=== PATIENT | female | born 1990 ===

== ENCOUNTER 2023-11-27 00:04 | Inpatient (IN) | payer SELFPAY ==
[2023-11-27] MEDS ORDERED: Nalbuphine 10 MG/0.5 ML Syringe IVPUSH PRN (00:19)
[2023-11-27] MEDS ORDERED: Sodium Chloride 0.9% 10 ML Syringe FLUSH PRN (00:19)
[2023-11-27] MEDS ORDERED: Misoprostol 200 MCG Tab PO PRN (00:19)
[2023-11-27] MEDS ORDERED: Water For Irrigation,Sterile 1,000 ML Container IRR PRN (00:19)
[2023-11-27] MEDS ORDERED: Sodium Chloride 0.9% 2.5 ML Syringe FLUSH PRN (00:19)
[2023-11-27] MEDS ORDERED: Lidocaine 1% 50 ML MDV INJECT PRN (00:19)
[2023-11-27] MEDS ORDERED: Carboprost Tromethamine 250 MCG/1 mL Vial IM PRN (00:19)
[2023-11-27] MEDS ORDERED: Methylergonovine 0.2 MG/1 ML Amp IM PRN (00:19)
[2023-11-27] MEDS ORDERED: Sodium Chloride 0.9% 20 ML SDV IV PRN (00:19)
[2023-11-27] MEDS ORDERED: Tranexamic Acid IN NACL,ISO-OS 1,000 MG in Premix Bag 1 BAG IV PRN (00:19)
[2023-11-27] MEDS ORDERED: Terbutaline 1 MG/ML SDV SUBCUT PRN (00:22)
[2023-11-27] MEDS ORDERED: Oxytocin/0.9 % Sodium Chloride 30 UNIT/500 ML BAG IV SCH (00:30)
[2023-11-27 00:39] LABS: HEMATOCRIT 35.9 % (37.0-47.0); HEMOGLOBIN 12.4 g/dL (12.0-16.0); MEAN CORPUSCULAR HEMOGLOBIN 30.8 pg (28.0-32.0); MEAN CORPUSCULAR HGB CONC 34.5 g/dL (32.0-36.0); MEAN CORPUSCULAR VOLUME 89.3 fL (83.0-99.0); MEAN PLATELET VOLUME 9.6 fL (9.4-12.3); PLATELET COUNT,PLT 299 K/uL (150-400); RED BLOOD CELL COUNT 4.02 M/uL (4.10-5.30); WHITE BLOOD CELL COUNT,WBC 9.68 K/uL (3.9-11.3)
[2023-11-27] MEDS: Lactated Ringers 1,000 ML IV SCH (00:41)
[2023-11-27] MEDS: Ampicillin 2 GM in Sodium Chloride 0.9% 100 ML IV ONE (00:45)
[2023-11-27] MEDS: Misoprostol 25 MCG (1/4 of 100 MCG) Tab VAG PRN (00:51)
[2023-11-27] MEDS: Ampicillin 1 GM in Sodium Chloride 0.9% 50 ML IV SCH (04:46)
[2023-11-27] MEDS: Oxytocin/0.9 % Sodium Chloride 30 UNIT/500 ML BAG IV SCH (09:23)
[2023-11-27] MEDS ORDERED: Phenylephrine HCl 0.5 MG/5 ML AMP ONE (13:51)
[2023-11-27] MEDS ORDERED: Bupivacaine 0.5% 10 ML SDV ONE (13:51)
[2023-11-27] MEDS: Ropivacaine HCl/PF 200 ML ONE (14:05)
[2023-11-27] MEDS ORDERED: ePHEDrine 50 MG/ML SDV IVPUSH PRN ×2 (14:12)
[2023-11-27] MEDS ORDERED: Ropivacaine HCl/PF 400 MG in Premix Bag 1 BAG EPIDUR SCH (14:15)
[2023-11-27] MEDS: Phenylephrine HCl 0.5 MG/5 ML AMP IVPUSH PRN (17:52)
[2023-11-27] MEDS: Ondansetron 4 MG/2 ML SDV IVPUSH PRN (22:37)
[2023-11-28] MEDS ORDERED: Docusate Sodium 100 MG Cap PO PRN (00:15)
[2023-11-28] MEDS ORDERED: Methylergonovine 0.2 MG/1 ML Amp IM PRN (00:15)
[2023-11-28] MEDS ORDERED: Lanolin 100% Cream 7 GM Tube TOP PRN (00:15)
[2023-11-28] MEDS ORDERED: Tranexamic Acid IN NACL,ISO-OS 1,000 MG in Premix Bag 1 BAG IV PRN (00:15)
[2023-11-28 01:04] LABS: PH,UMBILICAL ARTERIAL 7.205 (7.18-7.38); PH,UMBILICAL VENOUS 7.313 (7.25-7.45)
[2023-11-28] MEDS: Witch Hazel Medicated Pads 40/Jar TOP PRN (03:22)
[2023-11-28] MEDS: Benzocaine/Menthol 20%-0.5% Spray 78 GM Cannister TOP PRN (03:23)
[2023-11-28] MEDS: Acetaminophen 500 MG Tab PO PRN (07:49)
[2023-11-28] MEDS: Ibuprofen 800 MG Tab PO PRN (12:32)
[2023-11-29 06:05] LABS: HEMATOCRIT 33.4 % (37.0-47.0); HEMOGLOBIN 11.3 g/dL (12.0-16.0)
== END 2023-11-29 11:20 | disposition home or self-care (01) | DRG 807 ==
LOC: MW.OB 00:04 → OBSVTOIN 23:59 → MW.OB 11-28 03:16 → MW.ICU 11-28 19:40
PROVIDERS: ADMIT Obstetrics & Gynecology; ATTEND Obstetrics & Gynecology
PROC: 10E0XZZ Delivery of Products of Conception, External Approach (ICD-10-PCS; principal; 2023-11-27)
PROC: 3E0P7VZ Introduction of Hormone into Female Reproductive, Via Natural or Artificial Opening (ICD-10-PCS; 2023-11-27)
PROC: 10907ZC Drainage of Amniotic Fluid, Therapeutic from Products of Conception, Via Natural or Artificial Opening (ICD-10-PCS; 2023-11-27)
PROC: 3E0R3BZ Introduction of Anesthetic Agent into Spinal Canal, Percutaneous Approach (ICD-10-PCS; 2023-11-27)
PROC: 00HU33Z Insertion of Infusion Device into Spinal Canal, Percutaneous Approach (ICD-10-PCS; 2023-11-27)
PROC: 3E033VJ Introduction of Other Hormone into Peripheral Vein, Percutaneous Approach (ICD-10-PCS; 2023-11-27)
PROC: 10H07YZ Insertion of Other Device into Products of Conception, Via Natural or Artificial Opening (ICD-10-PCS; 2023-11-27)
DX: O99.214 Obesity complicating childbirth (principal); Z37.0 Single live birth; O99.844 Bariatric surgery status complicating childbirth; O99.824 Streptococcus B carrier state complicating childbirth; O69.81X0 Labor and delivery complicated by cord around neck, without compression, not applicable or unspecified; Z3A.39 39 weeks gestation of pregnancy; O36.5930 Maternal care for other known or suspected poor fetal growth, third trimester, not applicable or unspecified
CPT/HCPCS: 01967; 36415; 51702; 59025; 59409; 82803; 85014; 85018; 85027; 86592; 86850; 86900; 86901; A9270-GY; J0290; J0665; J2371; J2405; J2590; J2795; J3490; J7120